=== PATIENT | female | born 1955 | race Asian ===

== ENCOUNTER 2023-09-18 13:26 | Day surgery (SDC) | payer OTHER ==
[2023-09-18] MEDS: ACETAMINOPHEN 325 MG TABLET (FP) PO ONE (13:59)
[2023-09-18] MEDS: ZOLEDRONIC ACID/MAN/WATER 5 MG/100 ML INFUS..BTL IVPB ONE (14:14)
[2023-09-18 14:30] VITALS: BP 122/76; PULSE 67; RESP 19
[2023-09-18 14:55] VITALS: TEMP 97.8
== END 2023-09-18 15:36 | disposition home or self-care (01) ==
LOC: FINFUSION 13:26 → FM/S 13:31 → FINFUSION 15:36
PROVIDERS: ATTEND Internal Medicine Endocrinology, Diabetes & Metabolism
PROC: 3E033GC Introduction of Other Therapeutic Substance into Peripheral Vein, Percutaneous Approach (ICD-10-PCS; principal; 2023-09-18)
DX: M81.0 Age-related osteoporosis without current pathological fracture (principal)
CPT/HCPCS: 96365; J3489

== ENCOUNTER 2024-10-01 13:46 | Day surgery (SDC) | payer OTHER ==
[2024-10-01] MEDS: ACETAMINOPHEN 325 MG TABLET (FP) PO ONE (14:19)
[2024-10-01] MEDS: ZOLEDRONIC ACID/MAN/WATER 5 MG/100 ML INFUS..BTL IVPB ONE (14:22)
[2024-10-01 14:56] VITALS: BP 121/80; PULSE 66; RESP 18; TEMP 98.2
== END 2024-10-01 15:11 | disposition home or self-care (01) ==
LOC: FINFUSION 13:46 → FM/S 13:47 → FINFUSION 15:11
PROVIDERS: ATTEND Internal Medicine Endocrinology, Diabetes & Metabolism
PROC: 3E033GC Introduction of Other Therapeutic Substance into Peripheral Vein, Percutaneous Approach (ICD-10-PCS; principal; 2024-10-01)
DX: M81.0 Age-related osteoporosis without current pathological fracture (principal)
CPT/HCPCS: 96365; J3489